=== PATIENT | male | born 1980 ===

== ENCOUNTER 2024-04-25 16:41 | Emergency (ER) | payer OTHER ==
[2024-04-25] MEDS: Diphtheria,Pertussis(Acell),Tetanus Vaccine 0.5 ML Syringe IM ONE (17:17)
[2024-04-25] MEDS: Lidocaine 1% 5 ML VIAL INJECT ONE (17:18)
[2024-04-25] MEDS: Bacitracin Oint 1 GM U/D Packet TOP ONE (17:18)
[2024-04-25] MEDS: Bacitracin Oint 1 GM U/D Packet ONE (17:18)
== END 2024-04-25 17:19 | disposition home or self-care (01) ==
LOC: DL.ED 16:41
DX: S60.451A Superficial foreign body of left index finger, initial encounter (principal); I10 Essential (primary) hypertension; Z79.899 Other long term (current) drug therapy; Z23 Encounter for immunization; W45.8XXA Other foreign body or object entering through skin, initial encounter
CPT/HCPCS: 90471; 90715; 99283; A9270